=== PATIENT | male | born 1965 | race Caucasian/White ===

== ENCOUNTER 2022-12-30 09:48 | Outpatient (CLI) | payer BC, SELFPAY ==
[2022-12-30 14:31] LABS: SARS PCR* POSITIVE SARS-CoV-2 (Negative)
== END 2022-12-30 09:49 | disposition home or self-care (01) ==
LOC: FBOREF 09:49
PROVIDERS: PCP Family Medicine; Visit Provider Family Medicine
DX: U07.1 COVID-19 (principal); R05.9 Cough, unspecified
CPT/HCPCS: 87635

== ENCOUNTER 2024-03-22 08:16 | Outpatient (CLI) | payer BC, SELFPAY ==
--- OUTSIDE RECORDS SUMMARY | 2024-03-22 08:27 | XMS_ITS | Clinical Summary ---
Author Name Unknown Organization [employer] [facility] Address [place], [place] [address] Care Team Providers Care Dipper Operator Name Role Phone Guy Woodruff MD Primary Care Provider + Allergies Active Allergy Reactions Criticality Noted Date Comments Amlodipine Edema 02/28/2014 Medications Medication Sig Dispensed Refills Start Date End Date Status lisinopril-hydrochlorot hiazide (10-12.5 mg) tablet (PRINZIDE; ZESTORETIC)Indications: Hypertension, unspecified type Take 1 tablet by mouth once daily. 90 tablet 1 08/03/2018 Active zolpidem (AMBIEN) 10 mg tabletIndications:Prima ry insomnia TAKE 1 TABLET BY MOUTH AT BEDTIME IF NEEDED FOR SLEEP. 30 tablet 5 09/14/2018 Active atorvastatin (LIPITOR) 20 mg tabletIndications:Hyper lipidemia, unspecified hyperlipidemia type Take 1 tablet by mouth once daily. 90 tablet 12/23/2018 Active Active Problems Problem Noted Date Diagnosed Date ROSA 10/13/2017 AHI/RDI:45 10/20/2017 Hereditary hemochromatosis 10/28/2015 HTN (hypertension) 01/19/2014 Hyperlipidemia 07/24/2012 Eczema 07/24/2012 Immunizations Name Administration Dates Next Due Tdap 09/15/2015,06/01/2007 Family History Medical History Relation Name Comments Heart Disease Brother heart stent ag e 50's Heart Disease Father in his 50 s Heart Disease Sister heart stent ag e 50's Relation Name Status Comments Brother Father Sister Social History Tobacco Use Types Packs/Day Years Used Date Smoking Tobacco: Never Smokeless Tobacco: Never Tobacco Cessation:Counseling Given: Yes Alcohol Use Standard Drinks/Week Comments Yes 0 (1 standard drink = 0.6 oz pur e alcohol) Social PHQ-2 Answer Date Recorded PHQ-2 Score 0 01/08/2019 Sex and Gender Information Value Date Recorded Sex Assigned at Not on file Gender Identity Not on file Sexual Orientation Not on file Obstetrics History Last Filed Vital Signs Vital Sign Reading Time Taken Comments Blood Pressure 124/76 07/15/2019 12:58 PM CDT Pulse 78 07/15/2019 12:58 PM CDT Temperature 37 ??C (98.6 ??F) 07/15/2019 12:58 PM CDT Respiratory Rate 16 07/15/2019 12:58 PM CDT Oxygen Saturation 96% 07/15/2019 12:58 PM CDT Inhaled Oxygen Concentration - - Weight 91.9 kg (202 lb 9.6 oz) 07/15/2019 12:58 PM CDT Height 171.5 cm (5' 7.5) 07/15/2019 12:58 PM CD T Body Mass Index 31.26 07/15/2019 12:58 PM CDT Plan of Treatment Health Maintenance Due Date Last Done Comments HIV for age 15-65 1979 Hepatitis C screening for age 18-79 1982 Zoster (shingles) series for age 50+ (1 of 2) 2014 Depression screening for age 12+ 02/11/2019 02/11/2018, 01/23/2017 BMI (ht and wt on same day) for age 18+ 07/15/2020 07/15/2019, 02/11/2018, 01/23/2017, Additional history exists Colonoscopy through age 75 10/30/202110/30, 10/30/2016, 10/30/2016 Lipids for age 45-75 02/11/2023 02/11/2018, 01/23/2017, 03/30/2015, Additional history exists COVID-19 vaccine series (2022- season) 2023 Influenza for age 50-64 07/10/2024 Tetanus booster 09/15/2025 09/15/2015, 06/01/2007 Tdap Completed 09/15/2015, 06/01/2007 Pneumococcal series for age 6-64 Aged Out No longer eligible based on patient's age to complete this topic Procedures Procedure Name Priority Date/Time Associated Diagnosis Comments LIPID PANEL W REFLEX MEASURED LDL Routine 02/11/2018 10:05 AM CDT Hyperlipidemia, unspecified hyperlipidemia type COLONOSCOPY SCREENING Routine 10/30/2016 Special screening for malignant neoplasms, colon from Last 3 Months or Most Recently Relevant to Health Maintenance Results * (ABNORMAL) LIPID PANEL W REFLEX MEASURED LDL (02/11/2018 10:05 AM CDT) CHOLESTEROL,TOTAL 180 100 - 199 mg/dL 02/11/2018 10:54 AM CDT [facility] TRIGLYCERIDES 114 <150 mg/dL 02/11/2018 10:54 AM CDT [facility] HDL CHOLESTEROL 38(L) >40 mg/dL 8 10:54 AM CDT [facility] NON-HDL CHOLESTEROL 142 <145 mg/dl 02/11/2018 10:54 AM CDT [facility] CHOL/HDL RATIO 4.74(H) <4.50 02/11/2018 10:54 AM CDT [facility] LDL CHOLESTEROL 119 <=130 mg/dL 02/11/2018 10:54 AM CDT [facility] PROVIDER ORDERED STATUS RANDOM 02/11/2018 10:54 AM T [facility] Blood BLOOD SPECIMEN / Unknown Venipuncture / Unknown 02/11/2018 10:05 AM CDT 02/11/2018 10:06 AM CDT Guy Woodruff MD CHEMISTRY Performing Organization Address City/State/[facility] Co de Phone Number [facility] [address] [place] [address] * COLONOSCOPY SCREENING (10/30/2016) Guy Woodruff MD GI PROCEDURE ORD from Last 3 Months or Most Recently Relevant to Health Maintenance Care Teams Dipper Operator Relationship Specialty Start Date End Date Guy Woodruff MD PCP - General Family Practice 07/29/12
== END 2024-03-22 08:17 | disposition home or self-care (01) ==
PROVIDERS: PCP Family Medicine; Visit Provider Family Medicine
DX: Z00.00 Encounter for general adult medical examination without abnormal findings (principal); I10 Essential (primary) hypertension; E78.2 Mixed hyperlipidemia; E83.110 Hereditary hemochromatosis; Z12.5 Encounter for screening for malignant neoplasm of prostate
CPT/HCPCS: 80048; 80061; 80076; 82728; 83540; 85025; G0103

== ENCOUNTER 2024-04-22 12:04 | Outpatient (CLI) | payer BC, SELFPAY ==
--- OUTSIDE RECORDS SUMMARY | 2024-04-22 12:07 | XMS_ITS | Clinical Summary ---
Author Organization [employer] [facility] Address [place], [place] [address] Care Team Providers Care Fuel House Attendant Name Role Phone Guy Woodruff MD Primary [...] - 199 mg/dL 02/11/2018 10:54 AM CDT [facility] TRIGLYCERIDES 114 <150 mg/dL 02/11/2018 10:54 AM CDT [facility] HDL CHOLESTEROL 38(L) >40 mg/dL 8 10:54 AM CDT [facility] NON-HDL CHOLESTEROL 142 <145 mg/dl 02/11/2018 10:54 AM CDT [facility] CHOL/HDL RATIO 4.74(H) <4.50 02/11/2018 10:54 AM CDT [facility] LDL CHOLESTEROL 119 <=130 mg/dL 02/11/2018 10:54 AM CDT [facility] PROVIDER ORDERED STATUS RANDOM 02/11/2018 10:54 AM T [facility] Blood BLOOD SPECIMEN / Unknown Venipuncture / Unknown 02/11/2018 10:05 AM CDT 02/11/2018 10:06 AM CDT Guy Woodruff MD CHEMISTRY Performing Organization Address City/State/[facility] Co de Phone Number [facility] [address] [place] [address] * COLONOSCOPY SCREENING (10/30/2016) Guy Woodruff MD GI PROCEDURE ORD from Last 3 Months or Most Recently Relevant to Health Maintenance Care Teams Fuel House Attendant Relationship Specialty Start Date End Date Guy Woodruff MD PCP - General Family Practice 07/29/12
== END 2024-04-22 12:05 | disposition home or self-care (01) ==
LOC: LAB 12:05
PROVIDERS: PCP Family Medicine; Visit Provider Family Medicine
DX: E83.110 Hereditary hemochromatosis (principal)
CPT/HCPCS: 36415; 99195

== ENCOUNTER 2024-06-24 08:05 | Outpatient (CLI) | payer BC, SELFPAY ==
--- OUTSIDE RECORDS SUMMARY | 2024-06-24 08:08 | XMS_ITS | Clinical Summary ---
Author Organization [employer] [facility] Address [place], [place] [address] Care Team Providers Care Program Clinician Name Role Phone Guy Woodruff MD Primary [...] - 199 mg/dL 02/11/2018 10:54 AM CDT [facility] TRIGLYCERIDES 114 <150 mg/dL 02/11/2018 10:54 AM CDT [facility] HDL CHOLESTEROL 38(L) >40 mg/dL 8 10:54 AM CDT [facility] NON-HDL CHOLESTEROL 142 <145 mg/dl 02/11/2018 10:54 AM CDT [facility] CHOL/HDL RATIO 4.74(H) <4.50 02/11/2018 10:54 AM CDT [facility] LDL CHOLESTEROL 119 <=130 mg/dL 02/11/2018 10:54 AM CDT [facility] PROVIDER ORDERED STATUS RANDOM 02/11/2018 10:54 AM T [facility] Blood BLOOD SPECIMEN / Unknown Venipuncture / Unknown 02/11/2018 10:05 AM CDT 02/11/2018 10:06 AM CDT Guy Woodruff MD CHEMISTRY Performing Organization Address City/State/[facility] Co de Phone Number [address] [phone] * COLONOSCOPY SCREENING (10/30/2016) Guy Woodruff MD GI PROCEDURE ORD from Last 3 Months or Most Recently Relevant to Health Maintenance Care Teams Program Clinician Relationship Specialty Start Date End Date Guy Woodruff MD PCP - General Family Practice 07/29/12
== END 2024-06-24 08:06 | disposition home or self-care (01) ==
LOC: FBOREF 08:06
PROVIDERS: PCP Family Medicine; Visit Provider Family Medicine
DX: E83.110 Hereditary hemochromatosis (principal)
CPT/HCPCS: 82728; 85025

== ENCOUNTER 2024-10-31 10:11 | Outpatient (CLI) | payer BC, SELFPAY | END 2024-10-31 10:12 | disposition home or self-care (01) | PROVIDERS: PCP Family Medicine; Visit Provider Family Medicine | DX: M79.10 Myalgia, unspecified site (principal) | CPT/HCPCS: 80053; 82550; 85025; 86140 ==

== ENCOUNTER 2024-12-05 11:04 | Outpatient (CLI) | payer BC, SELFPAY ==
[2024-12-05 14:59] LABS: PCR FLU A POSITIVE PCR FLU A (Negative); PCR FLU B Negative PCR FLU B (Negative); SARS PCR* Negative SARS-CoV-2 (Negative)
== END 2024-12-05 11:05 | disposition home or self-care (01) ==
LOC: FBOREF 11:05
PROVIDERS: PCP Family Medicine; Visit Provider Family Medicine
DX: R50.9 Fever, unspecified (principal)
CPT/HCPCS: 87631

== ENCOUNTER 2025-03-24 09:04 | Outpatient (CLI) | payer BC, SELFPAY | END 2025-03-24 09:05 | disposition home or self-care (01) | PROVIDERS: PCP Family Medicine; Visit Provider Family Medicine | DX: Z00.00 Encounter for general adult medical examination without abnormal findings (principal); E78.2 Mixed hyperlipidemia; I10 Essential (primary) hypertension; E83.110 Hereditary hemochromatosis; R53.83 Other fatigue; M35.3 Polymyalgia rheumatica; Z12.5 Encounter for screening for malignant neoplasm of prostate | CPT/HCPCS: 80048; 80061; 82728; 84460; 85025; G0103 ==

== ENCOUNTER 2025-08-29 16:16 | Outpatient (CLI) | payer BC, SELFPAY | END 2025-08-29 16:17 | disposition home or self-care (01) | PROVIDERS: PCP Family Medicine; Visit Provider Family Medicine | DX: M35.3 Polymyalgia rheumatica (principal) | CPT/HCPCS: 85651; 86038; 86431 ==